=== PATIENT | male | born 1985 | race Caucasian/White ===

== ENCOUNTER 2023-02-10 08:47 | Emergency (ER) | payer MEDICAID, OTHER, SELFPAY ==
[2023-02-10 09:34] VITALS: BP 130/82; PULSE 63; RESP 18; TEMP 36.2; O2SAT 97; BMI 25.2
--- NOTE | 2023-02-10 10:07 | ED_ITS ---
HPI - Dental/Oral General Chief complaint: Dental/Oral Stated complaint: dental pain Time Seen by Provider: 02/10/23 09:47 Source: patient, RN notes reviewed and old records reviewed Mode of arrival: ambulatory History of Present Illness HPI Narrative: 37-year-old male with no significant past medical history presenting to the ED complaining right upper molar pain x1 week. Also reports subjective fevers last week. Admits tooth has been broken x months, recently moved here from [facility] & has not established care with a dentist. Denies recent dental trauma/injury or procedures, chills, sore throat, difficulty/inability to swallow MD Complaint: tooth pain Related Data Previous Rx's Medication Instructions Recorded amoxicillin 875 mg-potassium 1 tab PO BID 7 days #14 tabs 02/10/23 clavulanate 125 mg tablet Allergies Allergy/AdvReac Type Severity Reaction Status Date / Time No Known Allergies Allergy Verified 02/10/23 09:41 Review of Systems Review of Systems: Constitutional: No Fever, No Chills ENT/Mouth: +dental pain, No Ear Pain, No Nasal Congestion, No sore throat, No Rhinorrhea, No Swallowing Difficulty Cardiovascular: No Chest Pain, No SOB Respiratory: No Cough, No Sputum, No Wheezing Gastrointestinal: No Nausea, No Vomiting, No Abdominal pain Musculoskeletal: No joint pain, No Myalgias, No Joint Swelling Skin: No Skin Lesions, No rash Neuro: No Weakness Yes all other systems are reviewed and are negative Constitutional: Constitutional: Reports as per [facility] Past Medical History Attestation statement: The following information was validated with the patient. Source: old records reviewed Social History Social History Advance Directives: No Advance Directives Information Provided: No Physical Exam Vital Signs: Vital Signs: Last Vital Signs Temp 97.2 F 02/10/23 09:34 Pulse 63 02/10/23 09:34 Resp 18 02/10/23 09:34 BP 130/82 02/10/23 09:34 Pulse Ox 97 02/10/23 09:34 O2 Del Method Room Air 02/10/23 09:34 BMI result Body Mass Index 25.2 Const: General: cooperative, healthy appearing, no acute distress, alert and awake Orientation/consciousness: patient oriented x3 Limitations: no limitations HEENT: Other: + right upper 1st molar with gingival swelling and mild tenderness. No fluctuance/induration. No appreciable dental fracture or visible pulp Head: Yes normal to inspection and Yes atraumatic Ears: hearing grossly normal bilaterally General nose exam: Normal external nose present Face and sinus: Yes normal facial exam Mouth: Normal oral and palatal mucosa present Teeth and gingiva: fair dentition Throat: Yes posterior oropharynx normal, Yes tonsils normal and Yes uvula midline Eyes: General: appearance normal, both eyes and all related structures EOM: EOMs intact bilaterally Neck: Neck: Yes normal visual inspection and Yes no meningeal signs Resp: Effort & Inspection: normal respiratory effort and no respiratory distress Cardio: Rate: regular rate Skin: Rashes: no rashes Wounds: no wounds Neuro: General: patient oriented x3, tone normal and no meningeal signs Gait exam (Neuro): Normal gait present Extrem: General: Yes normal to inspection Medical Decision Making Medical Decision Making MDM Narrative: 37-year-old male with no significant past medical history presenting to the ED complaining right upper molar pain x1 week. On exam vital signs stable, NAD, nontoxic appearing, physical exam as noted above. Concern for gingivitis vs dental infection. No appreciable abscess, no appreciable facial swelling. TMs WNL, uvula midline, talking in complete sentences Plan: PO antibiotics, dentistry follow-up Results discussed with patient including worrisome signs and symptoms and strict return precautions, and when to return to the emergency department. They verbalized understanding and feel safe for discharge at this time. Differential Diagnosis Differential Diagnoses: The differential diagnosis associated with the presentation includes As above Lab Data [facility] Lab Attestation statement: I reviewed the patient's lab results. Radiology Impression Discussion of test interpretation with radiology: I have reviewed the radiologist's reading. External Record Review External record reviewed: Inpatient record, Office record, Outpatient record, Prior outpatient labs, Prior outpatient radiology, Primary care record and Outside ED record Tests considered The following testing was considered but not selected: As above Prescription Management I considered prescription management with: Pain Medication and Antibiotic Social Determinants Patient?s care significantly limited by Social Determinants of Health including: Other Social Determinant of Health Discharge Plan Discharge Clinical Impression: Toothache Patient Disposition: Home, Self-Care Instructions: Toothache (ED) Additional Instructions: Augmentin is an antibiotic please take as prescribed. Please establish care with a dentist If symptoms persist or worsen return to the emergency department Take Tylenol and Motrin for pain/swelling Augmentin es un antibi?dave, t?walter seg?n lo prescrito. Por favor establezca cuidado con un dentista Si los s?ntomas persisten o empeoran, regrese al servicio de urgencias. [place] Tylenol y Motrin para el dolor/inflamaci?n Prescriptions: New amoxicillin-pot clavulanate 875-125 mg tablet 1 tab PO BID 7 Days Qty: 14 0RF Referrals: Ceasar Umanzor [Dentist] - Eduarod Lopez DMD [Dentist] - Anibal Calderon DMD [Dentist] - Interventions: ED Discharge Assessment Last Done: 02/10/23 10:43 Discharge Date/Time: 02/10/23 10:43 Print Language: Icelandic
== END 2023-02-10 10:43 | disposition home or self-care (01) ==
PROVIDERS: Emergency Provider Emergency Medicine
DX: K08.89 Other specified disorders of teeth and supporting structures (principal)
CPT/HCPCS: 99282; 99283